=== PATIENT | female | born 1990 | race Hispanic/Latino ===

== ENCOUNTER 2019-02-11 13:01 | Emergency (ER) | payer OTHER ==
[2019-02-11 14:26] LABS: Barbiturates NEGATIVE (NEGATIVE); Benzodiazepines NEGATIVE (NEGATIVE); Cocaine NEGATIVE (NEGATIVE); METHAMPHETAM NEGATIVE (NEGATIVE); Methadone NEGATIVE (NEGATIVE); Opiates NEGATIVE (NEGATIVE); Phencyclidine NEGATIVE (NEGATIVE); THC Cannibis NEGATIVE (NEGATIVE)
[2019-02-11 15:04] LABS: Absolute Lymphocytes (CBC) 2.3 K/uL (0.7-4.9); Basophils % 0.4 % (0-1.3); Hematocrit 41.6 % (36.0-45.0); Lymphocytes % 43.9 % (15.3-44.8); MPV 8.8 fL (7.6-11.3); RBC Red Blood Cell Count 4.73 M/uL (3.86-4.86)
[2019-02-11 15:07] LABS: Protime INR 0.9
[2019-02-11 15:21] LABS: ALT/SGPT 20 U/L (12-78); AST/SGOT 13 U/L (15-37); Albumin 3.3 g/dL (3.4-5.0); Alkaline Phosphatase 81 U/L (45-117); BUN Blood Urea Nitrogen 8 mg/dL (7-18); Bicarbonate 27 mmol/L (21-32); Bilirubin Direct < 0.1 mg/dL (0-0.2); Bilirubin Total 0.2 mg/dL (0.2-1.0); Glucose Level 107 mg/dL (74-106); Potassium 3.5 mmol/L (3.5-5.1); Protein, Total 7.2 g/dL (6.4-8.2); Sodium Level 143 mmol/L (136-145)
[2019-02-11 15:55] LABS: Urine Blood TRACE (NEG); Urine Glucose NEGATIVE (NEG); Urine Protein NEGATIVE (NEG); Urine pH 5.5 (5.0-7.0)
--- NOTE | 2019-02-11 16:10 | ER ---
Nurse's Notes [facility] Name: Margot Sinha Age: 28 yrs Sex: Female : 1990 Arrival Date: 02/11/2019 Time: 13:09 Bed 16 Private MD: Diagnosis: Suicidal ideations;Hallucinations, unspecified Presentation: 02/11 13:09 Presenting complaint: EMS states: suicidal and homicidal ideations, pt was advised to [facility] come to ER per pt's psychiatrist. [facility] is [facility] at [facility] for methamphetamine use. 13:09 Transition of care: patient was received from another setting of care (rehabilitation [facility] facility). Onset of symptoms was February 11, 2019. Risk Assessment: Do you want to hurt yourself or someone else? Patient reports desire/thoughts of hurting themselves or someone else. Provider notified. Care prior to arrival: None. 13:09 Acuity: ZHANG 2 aa5 13:09 Method Of Arrival: EMS: [facility] 13:10 Initial Sepsis Screen: Does the patient meet any 2 criteria? No. Patient's initial bp sepsis screen is negative. Does the patient have a suspected source of infection? No. Patient's initial sepsis screen is negative. Triage Assessment: 13:10 General: Appears in no apparent distress. comfortable, Behavior is calm, cooperative, bp appropriate for age. Pain: Denies pain. EENT: No deficits noted. Neuro: No deficits noted. Cardiovascular: No deficits noted. Respiratory: No deficits noted. GI: No signs and/or symptoms were reported involving the gastrointestinal system. : No signs and/or symptoms were reported regarding the genitourinary system. Derm: No deficits noted. Musculoskeletal: No deficits noted. 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 - Ebola Screening: : No symptoms or risks identified at this time. - Social history:: Smoking status: Patient uses tobacco products, unknown amount. Screenin:10 Abuse screen: Denies threats or abuse. Denies injuries from another. Nutritional bp screening: No deficits noted. Tuberculosis screening: No symptoms or risk factors identified. Fall Risk None identified. Assessment: 13:10 General: SEE TRIAGE NOTE. 28YO HF P/W SI/HI 2/2 METH WITHDRAWL. bp 16:45 Reassessment: REPORT TO BRYANT ANG AT [facility]. bp 18:10 Reassessment: ACCEPTANCE AT [facility], TRANSPORT PENDING. bp 18:51 Reassessment: PT [place] WITH [facility]. bp Psych: 18:52 Subjective: Patient's mood is sad, Delusions are denied, Hallucinations are denied bp Having thoughts of BOTH. Objective: Patient is cooperative, Speech is normal, Affect is appropriate. Interventions: Removed personal items and placed in bag. Patient placed in hospital gown. Searched person for dangerous items. Urine collected and sent for urine drug test. Belonging list filled out. Suicide Risk Assessment: Sad Person Scale: Sex of patient: Female: Score 0 points. Age of patient: Score 1 point if patient 15-34. Depression: Score 1 point if signs of depression are present. Previous Attempt: Score 0 point if patient has not previously attempted suicide. Substance Abuse: Score 1 point if patient abuses alcohol or drugs. Rational Thinking: Score 0 point if patient has rational thinking. Social Support: Score 1 point if social support is lacking and/or unavailable. Organized Plan: Score 0 if patient did not have an organized plan in place. Relationship: Score 1 point if patient is , , , or for a single male Chronic Sickness: Score 0 point if patient does not have a chronic illness, debilitating, or severe disorder. TOTAL POINTS: If total points are 5-6, proposed clinical action is to strongly consider hospitalization, depending upon confidence in the follow-up arrangement. Implement suicide precautions. Safety Checks: BELONGINGS RETURNED TO PT FOR TRANSFER. Patient uses methamphetamines. Commitment: Patient will be a voluntary commitment. Vital Signs: 13:37 BP 101 / 62; Pulse 71; Resp 16; Temp 98.6; Pulse Ox 100% ; Weight 81.65 kg; Height 5 mh5 ft. 5 in. (165.10 cm); Pain 0/10; 16:29 BP 100 / 72; Pulse 68; Resp 15; Temp 97.6(TE); Pulse Ox 100% ; mh5 13:37 Body Mass Index 29.95 (81.65 kg, 165.10 cm) mh5 ED Course: 13:00 Safety checks: Items removed: yes. Door open/sign placed on door: yes. Family/friend mh5 present: no. Sitter present: Yes. 13:09 Patient arrived in ED. aa5 13:09 Arm band placed on. aa5 13:15 Safety checks: Items removed: yes. Door open/sign placed on door: yes. Family/friend mh5 present: no. Sitter present: Yes. 13:24 Taran Flores PA is PHCP. cp 13:24 Flynn Syed MD is Attending Physician. cp 13:26 Triage completed. aa5 13:27 Raymond Rhodes, SAV is Primary Nurse. bp 13:30 Safety checks: Items removed: yes. Door open/sign placed on door: yes. Family/friend mh5 present: no. Sitter present: Yes. 13:40 Patient has correct armband on for positive identification. Placed in gown. Bed in low mh5 position. Warm blanket given. 13:40 Initial lab(s) drawn, by nc, sent to lab. Urine collected: clean catch specimen, clear. 5 Inserted saline lock: 22 gauge in left forearm, using aseptic technique. 13:41 Urine --Ancillary (enter results) Sent. 5 13:41 Urine Dipstick--Ancillary (enter results) Sent. 5 13:45 Safety checks: Items removed: yes. Door open/sign placed on door: yes. Family/friend mh5 present: no. Sitter present: Yes. 13:52 Diet: Patient given snack. 5 14:00 Safety checks: Items removed: yes. Door open/sign placed on door: yes. Family/friend mh5 present: no. Sitter present: Yes. 14:05 EKG done, by carpet cleaning technician. reviewed by Taran LAMAR. at1 14:14 Acetaminophen Sent. mh5 14:14 Basic Metabolic Panel Sent. mh5 14:14 CBC with Diff Sent. mh5 14:14 ETOH Level Sent. mh5 14:14 Hepatic Function Sent. mh5 14:14 PT-INR Sent. mh5 14:14 Ptt, Activated Sent. mh5 14:14 Salicylate Sent. mh5 14:14 Urine Drug Screen Sent. mh5 14:14 Urine Dipstick--Ancillary (enter results) Sent. mh5 14:14 Urine --Ancillary (enter results) Sent. mh5 14:15 Safety checks: Items removed: yes. Door open/sign placed on door: yes. Family/friend mh5 present: no. Sitter present: Yes. 14:30 Safety checks: Items removed: yes. Door open/sign placed on door: yes. Family/friend mh5 present: no. Sitter present: Yes. 14:45 Safety checks: Items removed: yes. Door open/sign placed on door: yes. Family/friend mh5 present: no. Sitter present: Yes. 14:48 Lab(s) recollected, by me, sent to lab. mh5 14:49 Acetaminophen Sent. mh5 14:49 Basic Metabolic Panel Sent. mh5 14:49 CBC with Diff Sent. mh5 14:49 ETOH Level Sent. mh5 14:49 Hepatic Function Sent. mh5 14:49 PT-INR Sent. mh5 14:49 Ptt, Activated Sent. mh5 14:49 Salicylate Sent. mh5 15:00 Safety checks: Items removed: yes. Door open/sign placed on door: yes. Family/friend mh5 present: no. Sitter present: Yes. 15:15 Safety checks: Items removed: yes. Door open/sign placed on door: yes. Family/friend mh5 present: no. Sitter present: Yes. 15:30 Safety checks: Items removed: yes. Door open/sign placed on door: yes. Family/friend mh5 present: no. Sitter present: Yes. 15:45 Safety checks: Items removed: yes. Door open/sign placed on door: yes. Family/friend mh5 present: no. Sitter present: Yes. 16:00 Safety checks: Items removed: yes. Door open/sign placed on door: yes. Family/friend mh5 present: no. Sitter present: Yes. 16:15 Safety checks: Items removed: yes. Door open/sign placed on door: yes. Family/friend mh5 present: no. Sitter present: Yes. Safety checks: Items removed:. Safety checks: Items removed:. 16:24 faxed patient records to the following facilities in the attempt to transfer; [facility], [facility], [facility], [facility], [facility], [facility], [facility], [facility], [facility], [facility], [facility]. 16:30 Safety checks: Items removed: yes. Door open/sign placed on door: yes. Family/friend mh5 present: no. Sitter present: Yes. 16:42 connected the nurse Bryant from [facility] with Raymond for patient eb transfer consultation. 16:45 Safety checks: Items removed: yes. Door open/sign placed on door: yes. Family/friend mh5 present: no. Sitter present: Yes. 17:00 Safety checks: Items removed: yes. Door open/sign placed on door: yes. Family/friend mh5 present: no. Sitter present: Yes. 17:[address] Nathan the psychiatrist motion picture critic for [facility] with Taran LAMAR for eb patient transfer consultation. 17:15 Safety checks: Items removed: yes. Door open/sign placed on door: yes. Family/friend mh5 present: no. Sitter present: Yes. Diet: Patient given a regular meal tray. 17:30 Safety checks: Items removed: yes. Door open/sign placed on door: yes. Family/friend mh5 present: no. Sitter present: Yes. 17:45 Safety checks: Items removed: yes. Door open/sign placed on door: yes. Family/friend mh5 present: no. Sitter present: Yes. 18:00 Safety checks: Items removed: yes. Door open/sign placed on door: yes. Family/friend mh5 present: no. Sitter present: Yes. 18:15 Safety checks: Items removed: yes. Door open/sign placed on door: yes. Family/friend mh5 present: no. Sitter present: Yes. 18:30 Safety checks: Items removed: yes. Door open/sign placed on door: yes. Family/friend mh5 present: no. Sitter present: Yes. 18:37 No provider procedures requiring assistance completed. IV discontinued, intact, bp bleeding controlled, No redness/swelling at site. Pressure dressing applied. 18:45 Safety checks: Items removed: yes. Door open/sign placed on door: yes. Family/friend mh5 present: no. Sitter present: Yes. 18:48 Safety checks: Items removed: yes. Door open/sign placed on door: yes. Family/friend mh5 present: no. Sitter present: Yes. Other: EMS HERE FOR PATIENT . Administered Medications: No medications were administered Outcome: 16:09 ER care complete, transfer ordered by . cp 18:52 Transferred by ground EMS Note: [facility] bp 18:52 Condition: stable 18:52 Instructed on the need for transfer. 18:54 Patient left the ED. bp Signatures: January Ruth, RN RN aa5 Kendra Sibley, full stack software engineer EKG Tat1 Taran Flores PA PA cp Martinez, Maria 5 Raymond Rhodes, RN RN bp Christina Ball Corrections: (The following items were deleted from the chart) 13:40 13:37 BP 101 / 62; Pulse 71bpm; Resp 16bpm; Pulse Ox 100%; bp mh5 16:50 16:42 connected the nurse from [facility] with Raymond for patient transfer eb consultation. eb
--- NOTE | 2019-02-11 16:11 | EDPHYS ---
Physician Documentation [facility] Name: Margot Sinha Age: 28 yrs Sex: Female : 1990 Arrival Date: 02/11/2019 Time: 13:09 Bed 16 Private MD: ED Physician Flynn Syed HPI: 02/11 14:15 This 28 yrs old Female presents to ER via EMS with complaints of Suicidal Ideation, cp Homicidal Ideation. 14:15 The patient presents to the emergency department with suicide ideation. Onset: The cp symptoms/episode began/occurred 3 day(s) ago. Past psychiatric history: Prior diagnosis: bipolar disorder, Psychiatric medications include: Risperdol, the patient has a previous inpatient psychiatric history, October 2018. Associated signs and symptoms: Pertinent positives; auditory hallucinations, drug abuse. 14:15 Patient reports that she is hearing multiple voices that are telling her they want to cp hurt her children. 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 - Ebola Screening: : No symptoms or risks identified at this time. - Social history:: Smoking status: Patient uses tobacco products, unknown amount. ROS: 14:27 Eyes: Negative for injury, pain, redness, and discharge. cp 14:27 Constitutional: Negative for body aches, chills, fever, poor PO intake. 14:27 ENT: Negative for drainage from ear(s), ear pain, sore throat, difficulty swallowing, difficulty handling secretions. 14:27 Cardiovascular: Negative for chest pain, edema, palpitations. 14:27 Respiratory: Negative for cough, shortness of breath, wheezing. 14:27 Abdomen/GI: Negative for abdominal pain, nausea, vomiting, and diarrhea, black/tarry stool, rectal bleeding. 14:27 Skin: Negative for rash. 14:27 Neuro: Negative for altered mental status, headache, weakness. 14:27 Psych: Positive for drug dependence, auditory hallucinations, suicidal ideation. 14:27 All other systems are negative. Exam: 13:40 ECG was reviewed by the Attending Physician. cp 14:28 Head/Face: Normocephalic, atraumatic. cp 14:28 Constitutional: The patient appears in no acute distress, alert, awake, comfortable, non-toxic, well developed, well nourished. 14:28 Eyes: Periorbital structures: appear normal, Pupils: equal, round, and reactive to light and accomodation, Extraocular movements: intact throughout, Conjunctiva: normal, no exudate, no injection, Lids and lashes: appear normal, bilaterally. 14:28 ENT: External ear(s): are unremarkable, Nose: is normal, Mouth: Lips: moist, Oral mucosa: pink and intact, moist, Posterior pharynx: is normal, airway is patent, no erythema, no exudate. 14:28 Neck: ROM/movement: is normal, is supple, without pain, no range of motions limitations, no nuchal rigidity. 14:28 Chest/axilla: Inspection: normal, Palpation: is normal, no crepitus, no tenderness. 14:28 Cardiovascular: Rate: normal, Rhythm: regular. 14:28 Respiratory: the patient does not display signs of respiratory distress, Respirations: normal, no use of accessory muscles, no retractions, no splinting, no tachypnea, labored breathing, is not present, Breath sounds: are clear throughout, no decreased breath sounds, no stridor, no wheezing. 14:28 Abdomen/GI: Inspection: abdomen appears normal, Palpation: abdomen is soft and non-tender, in all quadrants. 14:28 Back: pain, is absent, ROM is normal. 14:28 Skin: no rash present. 14:28 Neuro: Orientation: to person, place \T\ time. Mentation: is normal, Cerebellar function: is grossly normal, Motor: moves all fours, strength is normal, Sensation: is normal. Vital Signs: 13:37 BP 101 / 62; Pulse 71; Resp 16; Temp 98.6; Pulse Ox 100% ; Weight 81.65 kg; Height 5 mh5 ft. 5 in. (165.10 cm); Pain 0/10; 16:29 BP 100 / 72; Pulse 68; Resp 15; Temp 97.6(TE); Pulse Ox 100% ; mh5 13:37 Body Mass Index 29.95 (81.65 kg, 165.10 cm) mh5 MDM: 13:24 Patient medically screened. cp 14:30 Differential diagnosis: drug withdrawal. acute psychotic break, depression, psychosis cp secondary to non-compliance. 16:07 Data reviewed: vital signs, nurses notes, lab test result(s), EKG. cp 17:11 Physician consultation: DR Burnett \T\[facility], will accept patient as transfer. 02/11 13:30 Order name: Urine Dipstick--Ancillary (enter results); Complete Time: 16:01 02/11 16:02 Interpretation: Normal except: UBLD TRACE; UESTR 3+. 02/11 13:30 Order name: Urine --Ancillary (enter results); Complete Time: 16:01 02/11 13:45 Order name: Acetaminophen; Complete Time: 16: 02/11 13:45 Order name: Basic Metabolic Panel; Complete Time: 16: 02/11 13:45 Order name: CBC with Diff; Complete Time: 16: 02/11 16:02 Interpretation: Normal except: RDW 19.2. 02/11 13:45 Order name: ETOH Level; Complete Time: 16: 02/11 13:45 Order name: Hepatic Function; Complete Time: 16: 02/11 13:45 Order name: PT-INR; Complete Time: 16: 02/11 13:45 Order name: Ptt, Activated; Complete Time: 16: 02/11 13:45 Order name: Salicylate; Complete Time: 16:01 02/11 13:45 Order name: Urine Drug Screen 02/11 13:45 Order name: EKG; Complete Time: 14:07 02/11 13:53 Order name: Diet Regular; Complete Time: 14:08 mh5 02/11 14:29 Order name: Urine Drug Screen; Complete Time: 14:48 EDMS 02/11 14:48 Interpretation: Reviewed. 02/11 13:45 Order name: EKG - Nurse/Tech; Complete Time: 13:48 02/11 13:45 Order name: IV Saline Lock; Complete Time: 13:50 02/11 13:45 Order name: Labs collected and sent; Complete Time: 13:50 02/11 13:45 Order name: Urine Dipstick-Ancillary (obtain specimen); Complete Time: 13:49 02/11 14:17 Order name: Labs - recollect needed; Complete Time: 14:49 02/11 15:31 Order name: Diet Regular; Complete Time: 15:32 5 EC:40 Rate is 71 beats/min. Rhythm is regular. IL interval is normal. QRS interval is normal. cp QT interval is normal. Interpreted by me. Reviewed by me. Administered Medications: No medications were administered Disposition: 02/11/19 16:09 Transfer ordered to Psych Facility. Diagnosis are Suicidal ideations, Hallucinations, unspecified. - Reason for transfer: Higher level of care. - Accepting physician is psych facility. - Condition is Stable. - Problem is new. - Symptoms are unchanged. Addendum: 02/14/2019 09:10 Co-signature as Attending Physician, Flynn Syed MD I agree with the assessment and k dr plan of care. Signatures: Dispatcher [employer] EDMS Flynn Syed MD MD [facility] January Ruth RN RN aa5 Taran Flores PA PA cp Raymond Rhodes RN RN bp Christina Ball Corrections: (The following items were deleted from the chart) 02/11 16:09 16:09 02/11/2019 16:09 Transfer ordered to Psych Facility. Diagnosis is Suicidal cp ideations; Hallucinations, unspecified. Reason for transfer: Higher level of care. Accepting physician is psych facility. Condition is Stable. Problem is new. Symptoms have improved. cp 18:54 16:09 02/11/2019 16:09 Transfer ordered to Psych Facility. Diagnosis is Suicidal bp ideations; Hallucinations, unspecified. Reason for transfer: Higher level of care. Accepting physician is psych facility. Condition is Stable. Problem is new. Symptoms are unchanged. cp
[2019-02-11 20:04] VITALS: O2SAT 100
[2019-02-11 20:06] VITALS: BP 100/72; TEMP 97.6
--- NOTE | 2019-02-12 14:17 | EKG ---
Test Date: 2019-02-11 Test Time: 13:34:35 Obstetrics And Gynecology Professor: SYLVESTER MEASUREMENT RESULTS: Intervals: Rate: 71 CA: 168 QRSD: 94 QT: 428 QTc: 465 [employer]: P: 68 CA: 168 QRS: 56 T: 51 INTERPRETIVE STATEMENTS: Normal sinus rhythm Normal ECG No previous ECG available for comparison Electronically Signed On 02-12-19 14:13:46 CDT by Jose Perez
== END 2019-02-11 18:54 ==
LOC: ER 13:01
DX: R44.0 Auditory hallucinations (principal); F31.9 Bipolar disorder, unspecified; Z72.0 Tobacco use
CPT/HCPCS: 36415; 80048; 80076; 80307; 80320; 80329; 81003; 81025; 85025; 85610; 85730; 93005; 99285

== ENCOUNTER 2019-03-08 12:46 | Emergency (ER) | payer OTHER ==
[2019-03-08] MEDS ORDERED: DIPHENHYDRAMINE 50 MG/ML VIAL ONE (13:05)
[2019-03-08 13:13] LABS: Absolute Lymphocytes (CBC) 2.3 K/uL (0.7-4.9); Basophils % 0.5 % (0-1.3); Hematocrit 38.4 % (36.0-45.0); MPV 8.6 fL (7.6-11.3); Protime INR 0.92; RBC Red Blood Cell Count 4.41 M/uL (3.86-4.86)
--- NOTE | 2019-03-08 13:26 | RAD REPORT ---
EXAM DESCRIPTION: CT - Head Brain Wo Cont - 03/08/2019 1:19 pm CLINICAL HISTORY: SLURRED SPEECH Headache, drowsiness COMPARISON: No comparisons TECHNIQUE: All CT scans are performed using dose optimization technique as appropriate and may inclu de automated exposure control or mA/KV adjustment according to patient size. FINDINGS: No intracranial hemorrhage, hydrocephalus or extra-axial fluid collection.No areas of brai n edema or evidence of midline shift. The paranasal sinuses and mastoids are clear. The calvarium is intact. IMPRESSION: No acute intracranial abnormality.
--- NOTE | 2019-03-08 13:27 | RAD REPORT ---
EXAM DESCRIPTION: RAD - Chest Single View - 03/08/2019 1:21 pm CLINICAL HISTORY: CHEST PAIN Chest pain. COMPARISON: No comparisons FINDINGS: Portable technique limits examination quality. The lungs are grossly clear. The heart is normal in size. No displaced fractures. IMPRESSION: No acute intrathoracic process suspected.
[2019-03-08 13:39] LABS: ALT/SGPT 27 U/L (12-78); AST/SGOT 16 U/L (15-37); Albumin 3.5 g/dL (3.4-5.0); Alkaline Phosphatase 72 U/L (45-117); BUN Blood Urea Nitrogen 10 mg/dL (7-18); Bicarbonate 31 mmol/L (21-32); Bilirubin Direct 0.1 mg/dL (0-0.2); Bilirubin Total 0.4 mg/dL (0.2-1.0); Glucose Level 83 mg/dL (74-106); Lipase 98 U/L (73-393); NT PRO-BNP 15 pg/mL (<125); Potassium 3.9 mmol/L (3.5-5.1); Protein, Total 7.3 g/dL (6.4-8.2); Sodium Level 140 mmol/L (136-145); Troponin (Emerg Dept Use Only) < 0.02 ng/mL (0.0-0.045)
[2019-03-08 13:48] LABS: Barbiturates NEGATIVE (NEGATIVE); Benzodiazepines NEGATIVE (NEGATIVE); Cocaine NEGATIVE (NEGATIVE); METHAMPHETAM NEGATIVE (NEGATIVE); Methadone NEGATIVE (NEGATIVE); Opiates NEGATIVE (NEGATIVE); Phencyclidine NEGATIVE (NEGATIVE); THC Cannibis NEGATIVE (NEGATIVE)
[2019-03-08 13:58] LABS: Urine Blood NEGATIVE (NEG); Urine Glucose NEGATIVE (NEG); Urine Protein NEGATIVE (NEG)
--- NOTE | 2019-03-08 14:32 | ER ---
Nurse's Notes [facility] Name: Margot Sinha Age: 29 yrs Sex: Female : 1990 Arrival Date: 03/08/2019 Time: 12:48 Bed 7 Private MD: Diagnosis: Other chest pain;Weakness;Bipolar disorder;Urinary tract infection, site not specified Presentation: 03/08 12:43 Presenting complaint: EMS states: called out for left shoulder/arm/wrist pressure and sv slurred speech since yesterday at 1200. left sided sharp chest pain. BP 118/78 HR-85 98% RA, negative Otis scale. Transition of care: patient was not received from another setting of care. Onset of symptoms was March 07, 2019 at 12:00. Risk Assessment: Do you want to hurt yourself or someone else? Patient reports no desire to harm self or others. Initial Sepsis Screen: Does the patient meet any 2 criteria? No. Patient's initial sepsis screen is negative. Does the patient have a suspected source of infection? No. Patient's initial sepsis screen is negative. Care prior to arrival: None. 12:43 Method Of Arrival: EMS: [facility] sv 12:43 Acuity: ZHANG 3 sv Triage Assessment: 12:45 General: Appears in no apparent distress. comfortable, well developed, Behavior is sv calm, cooperative, appropriate for age. Pain: Complains of pain in anterior aspect of left upper chest and left arm and left shoulder Pain currently is 4 out of 10 on a pain scale. Quality of pain is described as pressure, Pain began 1 day ago. Is continuous. Neuro: Level of Consciousness is awake, alert, obeys commands, Oriented to person, place, time, situation, Vertica Architect are equal bilaterally Moves all extremities. Full function Gait is steady, Speech is normal, Facial symmetry appears normal, Facial symmetry: tongue is midline, Denies weakness dizziness. Cardiovascular: Reports chest pain, Patient's skin is warm and dry. Pulses are 3+ in right radial artery and left radial artery Rhythm is sinus bradycardia. Respiratory: Airway is patent Respiratory effort is even, unlabored, Respiratory pattern is regular, symmetrical. Derm: Skin is pink, warm \T\ dry. Musculoskeletal: Range of motion: intact in all extremities. Historical: - Allergies: 12:55 No Known Allergies; sv - Home Meds: 12:55 risperidone 0.5 mg oral tab once daily [Active]; escitalopram oxalate 10 mg oral tab 1 sv tab once daily [Active]; benztropine 1 mg Oral tab 1 tab once daily [Active]; hydroxyzine HCl 25 mg Oral tab 3 times per day [Active]; - PMHx: 12:49 Bipolar disorder; sg 12:55 Hypertension; sv - Immunization history:: Adult Immunizations not up to date. - Social history:: Smoking status: Patient/guardian denies using tobacco. - Ebola Screening: : Patient negative for fever greater than or equal to 101.5 degrees Fahrenheit, and additional compatible Ebola Virus Disease symptoms Patient denies exposure to infectious person Patient denies travel to an Ebola-affected area in the 21 days before illness onset No symptoms or risks identified at this time. - Family history:: not pertinent. Screenin:45 VAN Screening: Arm Drift: Patient shows no arm weakness. Patient is VAN negative. sv Visual Disturbance: No visual disturbance noted. Aphasia: No aphasia noted. Neglect: No neglect noted. 13:14 Abuse screen: Denies threats or abuse. Denies injuries from another. Nutritional sv screening: No deficits noted. Tuberculosis screening: No symptoms or risk factors identified. Fall Risk None identified. Assessment: 13:13 Reassessment: Patient appears in no apparent distress at this time. No changes from sv previously documented assessment. Patient and/or family updated on plan of care and expected duration. Pain level reassessed. Patient is alert, oriented x 3, equal unlabored respirations, skin warm/dry/pink. 14:00 Reassessment: Patient appears in no apparent distress at this time. Patient and/or sv family updated on plan of care and expected duration. Pain level reassessed. Patient is alert, oriented x 3, equal unlabored respirations, skin warm/dry/pink. 14:52 Reassessment: Patient appears in no apparent distress at this time. Patient and/or sg family updated on plan of care and expected duration. Pain level reassessed. Patient is alert, oriented x 3, equal unlabored respirations, skin warm/dry/pink. spoke with donnie from [facility] transportation has been arranged and is on the way. Vital Signs: 12:49 BP 106 / 74; Pulse 76; Resp 16; Temp 97.6; Pulse Ox 98% on R/A; sg 14:16 BP 99 / 65; Pulse 57; Resp 15; Temp 98.0(TE); Pulse Ox 99% on R/A; mh5 ED Course: 12:48 Patient arrived in ED. sg 12:48 Arm band placed on. sg 12:49 Taran Landaverde MD is Attending Physician. rachid 12:49 Patient has correct armband on for positive identification. Placed in gown. Bed in low sv position. Call light in reach. monitor technician on. Pulse ox on. NIBP on. Door closed. Head of bed elevated. 12:49 Patient maintains SpO2 saturation greater than 95% on room air. sv 12:50 Madelin Soto RN is Primary Nurse. sv 12:53 Triage completed. sv 12:55 ED physician to see patient. sv 13:00 Initial lab(s) drawn, by me, sent to lab. Inserted saline lock: 22 gauge in right sg antecubital area, using aseptic technique. Blood collected. 13:05 EKG done, by weed science research technician. reviewed by Taran Landaverde MD. sm3 13:14 Awaiting lab results, Awaiting CT Scan, Awaiting for x-ray. sv 13:21 CT Head Brain wo Cont In Process Unspecified. EDMS 13:22 XRAY Chest (1 view) In Process Unspecified. EDMS 15:19 No provider procedures requiring assistance completed. IV discontinued, intact, hb bleeding controlled, No redness/swelling at site. Pressure dressing applied. Administered Medications: 13:13 Drug: Benadryl 25 mg Route: IVP; Site: right antecubital; sv 14:00 Follow up: Response: No adverse reaction sv 14:50 Drug: Rocephin 1 grams Route: IV; Rate: per protocol; Site: right antecubital; sg Outcome: 14:31 Discharge ordered by . rachid 15:19 Discharged to home ambulatory, with friend. hb 15:19 Condition: stable 15:19 Discharge instructions given to patient, Instructed on discharge instructions, follow up and referral plans. medication usage, Demonstrated understanding of instructions, follow-up care, medications, Prescriptions given X 2. 15:19 Patient left the ED. hb Signatures: Dispatcher [employer] EDMS Madelin Soto RN RN sv Gay, Steven, RN RN sg Anderson, Corey, MD MD cha Baxter, Heather, RN RN hb Martinez, Adri 5 Papa, Deedee 3
--- NOTE | 2019-03-08 14:32 | EDPHYS ---
Physician Documentation [facility] Name: Margot Sinha Age: 29 yrs Sex: Female : 1990 Arrival Date: 03/08/2019 Time: 12:48 Bed 7 Private MD: ED Physician Taran Landaverde HPI: 03/08 12:55 This 29 yrs old Female presents to ER via EMS with complaints of Arm Pain, rachid Chest Pressure. 12:55 The patient or guardian complains of pain. The complaints affect the left bicep, dorsal rachid aspect of left forearm, left tricep and palmar aspect of left forearm. Context: The problem was sustained at a [facility] place. Onset: The symptoms/episode began/occurred 1 day(s) ago. Treatment prior to arrival includes: no previous treatment. Modifying factors: The symptoms are alleviated by nothing. the symptoms are aggravated by nothing. Associated signs and symptoms: The patient has no apparent associated signs or symptoms. The patient has not experienced similar symptoms in the past. Historical: - Allergies: 12:55 No Known Allergies; sv - Home Meds: 12:55 risperidone 0.5 mg oral tab once daily [Active]; escitalopram oxalate 10 mg oral tab 1 sv tab once daily [Active]; benztropine 1 mg Oral tab 1 tab once daily [Active]; hydroxyzine HCl 25 mg Oral tab 3 times per day [Active]; - PMHx: 12:49 Bipolar disorder; sg 12:55 Hypertension; sv - Immunization history:: Adult Immunizations not up to date. - Social history:: Smoking status: Patient/guardian denies using tobacco. - Ebola Screening: : Patient negative for fever greater than or equal to 101.5 degrees Fahrenheit, and additional compatible Ebola Virus Disease symptoms Patient denies exposure to infectious person Patient denies travel to an Ebola-affected area in the 21 days before illness onset No symptoms or risks identified at this time. - Family history:: not pertinent. ROS: 12:55 Constitutional: Negative for fever, chills, and weight loss, Eyes: Negative for injury, rachid pain, redness, and discharge, ENT: Negative for injury, pain, and discharge, Neck: Negative for injury, pain, and swelling, Respiratory: Negative for shortness of breath, cough, wheezing, and pleuritic chest pain, Abdomen/GI: Negative for abdominal pain, nausea, vomiting, diarrhea, and constipation, Back: Negative for injury and pain, : Negative for injury, bleeding, discharge, and swelling, MS/Extremity: Negative for injury and deformity, Skin: Negative for injury, rash, and discoloration, Neuro: Negative for headache, weakness, numbness, tingling, and seizure, Psych: Negative for depression, anxiety, suicide ideation, homicidal ideation, and hallucinations, Allergy/Immunology: Negative for hives, rash, and allergies, Endocrine: Negative for neck swelling, polydipsia, polyuria, polyphagia, and marked weight changes, Hematologic/Lymphatic: Negative for swollen nodes, abnormal bleeding, and unusual bruising. 12:55 Cardiovascular: Positive for chest pain, of the chest. Exam: 12:55 Constitutional: This is a well developed, well nourished patient who is awake, alert, rachid and in no acute distress. Head/Face: Normocephalic, atraumatic. Eyes: Pupils equal round and reactive to light, extra-ocular motions intact. Lids and lashes normal. Conjunctiva and sclera are non-icteric and not injected. Cornea within normal limits. Periorbital areas with no swelling, redness, or edema. ENT: Nares patent. No nasal discharge, no septal abnormalities noted. Tympanic membranes are normal and external auditory canals are clear. Oropharynx with no redness, swelling, or masses, exudates, or evidence of obstruction, uvula midline. Mucous membranes moist. Neck: Trachea midline, no thyromegaly or masses palpated, and no cervical lymphadenopathy. Supple, full range of motion without nuchal rigidity, or vertebral point tenderness. No Meningismus. Chest/axilla: Normal chest wall appearance and motion. Nontender with no deformity. No lesions are appreciated. Cardiovascular: Regular rate and rhythm with a normal S1 and S2. No gallops, murmurs, or rubs. Normal PMI, no JVD. No pulse deficits. Respiratory: Lungs have equal breath sounds bilaterally, clear to auscultation and percussion. No rales, rhonchi or wheezes noted. No increased work of breathing, no retractions or nasal flaring. Abdomen/GI: Soft, non-tender, with normal bowel sounds. No distension or tympany. No guarding or rebound. No evidence of tenderness throughout. Back: No spinal tenderness. No costovertebral tenderness. Full range of motion. Skin: Warm, dry with normal turgor. Normal color with no rashes, no lesions, and no evidence of cellulitis. MS/ Extremity: Pulses equal, no cyanosis. Neurovascular intact. Full, normal range of motion. Psych: Awake, alert, with orientation to person, place and time. Behavior, mood, and affect are within normal limits. 12:55 Neuro: Orientation: is normal, appropriate for stated age, no acute changes, Mentation: is normal, appropriate for stated age, no acute changes, Memory: is normal, appropriate for stated age, no acute changes, Motor: is normal, is grossly normal based on the patient's age, no acute changes, moves all fours, strength is normal, Sensation: is normal, Gait: is steady, appropriate for age, Deep tendon reflexes are 2+ (normal) in the bilateral brachioradialis, bicep, tricep and patellar and Achilles tendons, Babinski testing is normal, seizure activity, is not displayed by the patient, Abnormal movements: there are no abnormal movements. Vital Signs: 12:49 BP 106 / 74; Pulse 76; Resp 16; Temp 97.6; Pulse Ox 98% on R/A; sg 14:16 BP 99 / 65; Pulse 57; Resp 15; Temp 98.0(TE); Pulse Ox 99% on R/A; mh5 MDM: 12:49 Patient medically screened. [facility] 12:55 Data reviewed: vital signs, nurses notes, lab test result(s), EKG, radiologic studies, [facility] CT scan, plain films. 03/08 12:51 Order name: Basic Metabolic Panel; Complete Time: 14:28 [facility] 03/08 12:51 Order name: CBC with Diff; Complete Time: 14:28 [facility] 03/08 12:51 Order name: LFT's; Complete Time: 14:28 [facility] 03/08 12:51 Order name: Magnesium; Complete Time: 14:28 [facility] 03/08 12:51 Order name: NT PRO-BNP; Complete Time: 14:28 [facility] 03/08 12:51 Order name: PT-INR; Complete Time: 14:28 [facility] 03/08 12:51 Order name: Troponin (emerg Dept Use Only); Complete Time: 14:28 [facility] 03/08 12:51 Order name: XRAY Chest (1 view); Complete Time: 14:28 [facility] 03/08 12:51 Order name: Lipase; Complete Time: 14:28 [facility] 03/08 12:51 Order name: UDS; Complete Time: 14:28 [facility] 03/08 13:06 Order name: Glucometer Result [place] 03/08 13:36 Order name: Urine Dipstick--Ancillary (enter results); Complete Time: 14:28 03/08 13:36 Order name: Urine --Ancillary (enter results); Complete Time: 14:28 03/08 14:28 Order name: Urine Culture [facility] 03/08 12:51 Order name: EKG; Complete Time: 12:52 [facility] 03/08 12:51 Order name: Cardiac monitoring; Complete Time: 13:07 [facility] 03/08 12:51 Order name: EKG - Nurse/Tech; Complete Time: 13:07 [facility] 03/08 12:51 Order name: IV Saline Lock; Complete Time: 13:07 [facility] 03/08 12:51 Order name: Labs collected and sent; Complete Time: 13:07 [facility] 03/08 12:51 Order name: O2 Per Protocol; Complete Time: 13:07 [facility] 03/08 12:51 Order name: O2 Sat Monitoring; Complete Time: 13:07 [facility] 03/08 12:51 Order name: Urine Dipstick-Ancillary (obtain specimen); Complete Time: 14:26 [facility] 03/08 12:51 Order name: Urine Test (obtain specimen); Complete Time: 14:26 [facility] 03/08 13:01 Order name: CT Head Brain wo Cont; Complete Time: 14:28 [facility] Administered Medications: 13:13 Drug: Benadryl 25 mg Route: IVP; Site: right antecubital; sv 14:00 Follow up: Response: No adverse reaction sv 14:50 Drug: Rocephin 1 grams Route: IV; Rate: per protocol; Site: right antecubital; sg Disposition: 03/08/19 14:31 Discharged to Home. Impression: Other chest pain, Weakness, Bipolar disorder, Urinary tract infection, site not specified. - Condition is Stable. - Discharge Instructions: Nonspecific Chest Pain, Urinary Tract Infection, Adult, Weakness, Urinary Tract Infection, Adult, [id number], Weakness, [id number], Aspirin and Your Heart. - Prescriptions for Vitamin 27- 0.8 mg Oral Tablet - take 1 tablet by ORAL route once daily; 30 tablet. Cipro 250 mg Oral Tablet - take 1 tablet by ORAL route every 12 hours; 14 tablet. - Medication Reconciliation Form, Thank You Letter, Antibiotic Education, Prescription Opioid Use form. - Follow up: Private Physician; When: 2 - 3 days; Reason: Recheck today's complaints, Continuance of care, Re-evaluation by your physician. - Problem is new. - Symptoms have improved. Signatures: Dispatcher [employer] EDMadelin Tabares RN RN sv Gay, Steven, RN RN sg Anderson, Corey, MD MD cha Baxter, Heather, RN RN hb Corrections: (The following items were deleted from the chart) 14:33 14:31 03/08/2019 14:31 Discharged to Home. Impression: Other chest pain; Weakness; rachid Bipolar disorder. Condition is Stable. Discharge Instructions: Nonspecific Chest Pain, Weakness, Weakness, [id number], Aspirin and Your Heart. Prescriptions for Vitamin 27-0.8 mg Oral Tablet - take 1 tablet by ORAL route once daily; 30 tablet. and Forms are Medication Reconciliation Form, Thank You Letter, Antibiotic Education, Prescription Opioid Use. Follow up: Private Physician; When: 2 - 3 days; Reason: Recheck today's complaints, Continuance of care, Re-evaluation by your physician. Problem is new. Symptoms have improved. [facility] 15:19 14:33 03/08/2019 14:31 Discharged to Home. Impression: Other chest pain; Weakness; hb Bipolar disorder; Urinary tract infection, site not specified. Condition is Stable. Discharge Instructions: Nonspecific Chest Pain, Weakness, Weakness, [id number], Aspirin and Your Heart. Prescriptions for Vitamin 27-0.8 mg Oral Tablet - take 1 tablet by ORAL route once daily; 30 tablet. and Forms are Medication Reconciliation Form, Thank You Letter, Antibiotic Education, Prescription Opioid Use. Follow up: Private Physician; When: 2 - 3 days; Reason: Recheck today's complaints, Continuance of care, Re-evaluation by your physician. Problem is new. Symptoms have improved. rachid
[2019-03-08] MEDS ORDERED: CEFTRIAXONE/SWI 1gm 1 GM/10 ML SYR ONE (14:39)
--- NOTE | 2019-03-08 15:51 | EKG ---
Test Date: 2019-03-08 Test Time: 12:49:21 Coating Machine Feeder: SHALINI MEASUREMENT RESULTS: Intervals: Rate: 77 WV: 168 QRSD: 84 QT: 426 QTc: 482 [place]: P: 66 WV: 168 QRS: 55 T: 54 INTERPRETIVE STATEMENTS: Normal sinus rhythm Prolonged QT Abnormal ECG Compared to ECG 02/11/2019 13:34:35 Prolonged QT interval now present Electronically Signed On 03-08-19 15:51:00 CDT by Jose Perez
[2019-03-08 16:25] VITALS: BP 99/65; TEMP 98; O2SAT 99
== END 2019-03-08 15:19 | disposition home or self-care (01) ==
LOC: ER 12:46
DX: R53.1 Weakness (principal); N39.0 Urinary tract infection, site not specified; F31.9 Bipolar disorder, unspecified; I10 Essential (primary) hypertension
CPT/HCPCS: 93005; 87088; 85025; 87086; 80048; 36415; 83735; 81025; 85610; 82962; 80076; 80307 ×8; 81003; 84484; 83690; 83880; 70450; 71045; 96375; 96374; 99285; J1200; J0696